=== PATIENT | male | born 1975 | race Caucasian/White ===

== ENCOUNTER 2018-04-27 04:59 | Emergency (ER) | payer BC, OTHER ==
[2018-04-27] MEDS ORDERED: HYDROmorphone 0.5 MG/0.5 ML SYRINGE IVPUSH STA ×2 (05:40→07:34)
[2018-04-27] MEDS ORDERED: Tamsulosin 0.4 MG Cap.ER PO ONE (05:40)
[2018-04-27] MEDS ORDERED: Ondansetron 4 MG/2 ML SDV IVPUSH ONE (05:41)
[2018-04-27] MEDS ORDERED: Ketorolac 30 MG/ML SDV IVPUSH STA (05:41)
[2018-04-27] MEDS ORDERED: Sodium Chloride 0.9% 1,000 ML IV SCH (05:45)
--- NOTE | 2018-04-27 05:47 | EDM.PDOC ---
ED HPI GENERAL MEDICAL PROBLEM - General Chief Complaint: Back Pain or Injury Stated Complaint: SEVERE PAIN IN BACK LEFT SIDE Time Seen by Provider: 04/27/18 05:17 Source of Information: Reports: Patient History Limitations: Reports: No Limitations - History of Present Illness INITIAL COMMENTS - FREE TEXT/NARRATIVE: The patient states that he developed left flank pain around 20:00 last night, as he was getting into bed. He became diaphoretic. He was unable to find a comfortable position. The pain radiated to his upper left abdomen around 20:30. He developed nausea and emesis around 20:45 to 21:00, which provided some relief , and the patient was able to get to sleep, but he was woken around 02:00 with symptoms worse than before, and he has been vomiting ever since. No recent fever. No urinary symptoms. No constipation or diarrhea. No prior similar symptoms. The patient states that he took 2 tablets of ibuprofen around 03:30, without any relief. The patient drove himself here. The patient's PCP is Liza Villagomez. Left Back Pain Score (Numeric/FACES): 8 - Related Data Allergies Allergy/AdvReac Type Severity Reaction Status Date / Time Penicillins Allergy Rash Verified 04/27/18 05:14 Home Meds: Home Meds Acetaminophen/HYDROcodone [[place] 325-5 MG] 1 - 2 tab PO Q6H PRN #20 tablet 04/27 [Rx] Ondansetron [Zofran ODT] 1 tab PO Q8H PRN #10 tab.dis 04/27/18 [Rx] Sertraline [Zoloft] 50 mg PO DAILY 04/27/18 [History] Tamsulosin HCl [Flomax] 1 cap PO QAM PRN #5 cap.er.24h 04/27/18 [Rx] Zolpidem Tartrate 10 mg PO BEDTIME PRN 04/27/18 [History] Past Medical History Psychiatric History: Reports: Anxiety, Other (See Below) (Insomnia) - Past Surgical History Head Surgeries/Procedures: Reports: Other (See Below) (Cosmetic cranial surgery as an infant) HEENT Surgical History: Reports: Oral Surgery ([place] teeth extraction) Respiratory Surgical History: Reports: Other (See Below) (Bronchoscopy to retrieve a foreign body at 6 years old) Social & Family History - Tobacco Use Smoking Status *Q: Never Smoker - Caffeine Use Caffeine Use: Reports: Coffee, Soda - Alcohol Use Alcohol Use History: No - Recreational Drug Use Recreational Drug Use: No - Living Situation & Occupation Living situation: Reports: , with Spouse, with Family (3 kids) 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 ED EXAM, RENAL/ - Physical Exam Exam: See Below Exam Limited By: No Limitations General Appearance: Alert, WD/WN, Mild Distress (Appears uncomfortable) Eye Exam: Bilateral Eye: Normal Inspection Ears: Normal External Exam, Hearing Grossly Normal Nose: Normal Inspection, No Blood Throat/Mouth: Normal Inspection, Normal Lips, Normal Voice, No Airway Compromise Head: Atraumatic, Normocephalic Neck: Normal Inspection, Full Range of Motion Respiratory/Chest: No Respiratory Distress, Lungs Clear, Normal Breath Sounds, No Accessory Muscle Use Cardiovascular: Normal Peripheral Pulses, Regular Rate, Rhythm, No Edema, No Gallop, No JVD, No Murmur, No Rub GI/Abdominal: Normal Bowel Sounds, Soft, No Organomegaly, No Distention, No Abnormal Bruit, No Mass, Tender (Left upper quadrant only. Nontender elsewhere.) (Male) Exam: Deferred Rectal (Males) Exam: Deferred Back Exam: Normal Inspection, Full Range of Motion. No: CVA Tenderness (L), CVA Tenderness (R) Extremities: Normal Inspection, Normal Range of Motion, No Pedal Edema, Normal Capillary Refill Neurological: Alert, Oriented, Normal Cognition, No Motor/Sensory Deficits Psychiatric: Normal Affect Skin Exam: Warm, Dry, Intact, Normal Color, No Rash Course - Vital Signs Last Recorded V/S: Last Vital Signs Temp 36.2 C 04/27/18 05:11 Pulse 64 04/27/18 05:11 Resp 18 04/27/18 05:11 BP 149/98 H 04/27/18 05:11 Pulse Ox 99 04/27/18 05:11 - Orders/Labs/Meds Orders: Active Orders 24 hr Category Date Time Status Strain Urine [RC] ASDIRECTED Care 04/27/18 05:42 Active UA W/MICROSCOPIC [URIN] Stat Lab 04/27/18 05:20 Ordered Sodium Chloride 0.9% [Normal Saline] 1,000 ml Med 04/27/18 05:45 Active IV ASDIRECTED Medication Orders Sodium Chloride (Normal Saline) 1,000 mls @ 150 mls/hr IV ASDIRECTED KENIA Last Admin: 04/27/18 05:50 Dose: 150 mls/hr Meds: Medications Generic Name Dose Route Start Last Admin Trade Name Antonia PRN Reason Stop Dose Admin Sodium Chloride 1,000 mls @ 150 mls/hr 04/27/18 05:45 04/27/18 05:50 Normal Saline IV 150 mls/hr ASDIRECTED KENIA Administration Discontinued Medications Generic Name Dose Route Start Last Admin Trade Name Cosmoq PRN Reason Stop Dose Admin Hydromorphone HCl 1 mg 04/27/18 05:40 04/27/18 05:51 Dilaudid IVPUSH 04/27/18 05:41 1 mg ONETIME STA Administration Hydromorphone HCl 1 mg 04/27/18 07:34 04/27/18 08:22 Dilaudid IVPUSH 04/27/18 07:35 1 mg ONETIME STA Administration Ketorolac Tromethamine 30 mg 04/27/18 05:41 04/27/18 05:51 Toradol IVPUSH 04/27/18 05:42 30 mg ONETIME STA Administration Ondansetron HCl 4 mg 04/27/18 05:41 04/27/18 05:51 Zofran IVPUSH 04/27/18 05:42 4 mg ONETIME ONE Administration Tamsulosin HCl 0.4 mg 04/27/18 05:40 04/27/18 05:52 Flomax PO 04/27/18 05:41 0.4 mg ONETIME ONE Administration - Re-Assessments/Exams Free Text/Narrative Re-Assessment/Exam: 04/27/18 05:48 The patient's history is consistent with that of a ureterolith, although his physical exam is not. Nevertheless, I have ordered a CT of the abdomen and pelvis without IV contrast to look for a ureterolith, as well as a urinalysis to make sure that he does not have a urinary tract infection. The patient states that he drove himself here, but that he can get a ride home, therefore I have ordered pain medication. 04/27/18 06:48 CT of the abdomen and pelvis without contrast is read by [facility] as "Mild left perinephric stranding and hydronephrosis secondary to a 2.5 mm calculus located in the left ureter at the level of L3. Remainder of findings as described above." 04/27/18 06:49 CT of the abdomen and pelvis without contrast is read by Dr. Hurley as: 1. 3.4 mm obstructing stone within the proximal left ureter slightly past the UPJ. This finding causes proximal hydronephrosis. 2. Small subpleural nodule within the left lung base. If patient is a smoker, recommend repeat CT (without contrast) in 12 months. If patient is not a smoker this can be ignored. 3. Other incidental findings. 04/27/18 07:19 Test results discussed with the patient. At either 2.5 or 3.4 mm, the patient will likely pass this stone on his own, therefore can be discharged home. Unfortunately, the patient has not yet provided a urine sample, and I don't want to send him home with a UTI. He believes that he can provide a urine sample soon. 04/27/18 08:51 Significant delay. The patient has not yet provided a urine sample. 04/27/18 09:42 The patient has not been able to provide a urine sample, despite receiving IV fluid and oral fluids. I will discharge him now with prescriptions for [place], Zofran, and Flomax. The patient can follow-up with his PCP to check a urinalysis. Departure - Departure Time of Disposition: 09:46 Disposition: Home, Self-Care 01 Condition: Fair Clinical Impression: Ureterolithiasis - Discharge Information Prescriptions: Acetaminophen/HYDROcodone [[place] 325-5 MG] 1 - 2 tab PO Q6H PRN #20 tablet PRN Reason: Pain (Severe 7-10) Ondansetron [Zofran ODT] 1 tab PO Q8H PRN #10 tab.dis PRN Reason: Nausea/Vomiting Tamsulosin HCl [Flomax] 1 cap PO QAM PRN #5 cap.er.24h PRN Reason: Pain Referrals: Liza Villagomez MOVE COORDINATOR [Primary Care Provider] - Jensen Canchola MD [Ordering Only Provider] - Forms: ED Department Discharge Additional Instructions: You were seen in the emergency room for left flank pain that radiated into your upper left abdomen, nausea, vomiting, and sweatiness. Workup in the ER included a CT scan of her abdomen and pelvis, which confirmed that you have a midsized stone in your left ureter. A stone the size and location of the stone, you will most likely pass it on your own. Take [id number] ibuprofen, 2-3 tablets (400-600 mg) every 8 hours, with food, as needed for pain. Take 1 to 2 tablets of the narcotic pain reliever [place] up to every 6 hours, as needed for pain not relieved by ibuprofen. If you take [place], do not drive or operate heavy machinery for 10 hours afterwards. Cr[place] will likely cause constipation, so consider taking a stool softener. Dissolve one tablet of the anti-nausea medicine Zofran on your tongue up to every 8 hours, as needed for nausea/vomiting. Take one capsule of the anti-spasm medicine Flomax every morning, starting tomorrow morning, 04/28/2018, as needed for pain. Stay adequately hydrated. Strain all of your urine. If you capture the stone, take it to your doctor for analysis. If your pain fails to improve within about a week, please follow-up with the urologist Dr. Canchola, in [place]. Because you were unable to provide a urine sample in the ER, please follow-up with your PCP, Liza Villagomez, to check your urine, to make sure that you do not have a urinary tract infection. If any other problems, please do not hesitate to return to the ER. - My Orders Last 24 Hours: My Active Orders 04/27/18 05:20 UA W/MICROSCOPIC [URIN] Stat 04/27/18 05:42 Strain Urine [RC] ASDIRECTED 04/27/18 05:45 Sodium Chloride 0.9% [Normal Saline] 1,000 ml IV ASDIRECTED - Assessment/Plan Last 24 Hours: My Active Orders 04/27/18 05:20 UA W/MICROSCOPIC [URIN] Stat 04/27/18 05:42 Strain Urine [RC] ASDIRECTED 04/27/18 05:45 Sodium Chloride 0.9% [Normal Saline] 1,000 ml IV ASDIRECTED
--- NOTE | 2018-04-27 06:38 | CT ---
CT abdomen and pelvis Technique: Multiple axial sections were obtained from above the dome of the diaphragm inferiorly through the pubic symphysis. Intravenous and oral contrast not utilized. Study has been performed as a ureteral stone protocol. Comparison: No prior abdominal imaging. Findings: Mild left-sided hydronephrosis is seen. This is due to a small obstructing stone within the proximal left ureter located slightly past the UPJ and measuring about 3.4 mm in size. No other abnormal calcifications are seen along the course of the ureters. No abnormal calcifications are seen within the kidneys. Small subpleural nodule is noted within the left lung base measuring about 3.5 mm. Liver shows no focal abnormality. Spleen appears within normal limits. Adrenal glands show no nodule. Pancreas is within normal limits. Gallbladder contains no calcified gallstones. Aorta shows no aneurysmal dilatation. No retroperitoneal adenopathy or mesenteric abnormalities are seen. Appendix is seen which is normal in size. No pelvic mass or adenopathy is seen. No inflammatory change or free fluid is seen within the abdomen or pelvis. Bone window settings were reviewed which shows disc space narrowing at L5-S1. Impression: 1. 3.4 mm obstructing stone within the proximal left ureter slightly past the UPJ. This finding causes proximal hydronephrosis. 2. Small subpleural nodule within the left lung base. If patient is a smoker, recommend repeat chest CT (without contrast) in 12 months. If patient is not a smoker this can be ignored. 3. Other incidental findings. Diagnostic code #3
== END 2018-04-27 11:05 | disposition home or self-care (01) ==
LOC: JD.ED 04:59
DX: N13.2 Hydronephrosis with renal and ureteral calculous obstruction (principal); Z88.0 Allergy status to penicillin; Z79.899 Other long term (current) drug therapy
CPT/HCPCS: 74176; 81001; 96361; 96374; 96375; 96376; 99284; A9270; J1170; J1885; J2405; J7040

== ENCOUNTER 2021-04-22 07:04 | Observation (INO) | payer OTHER ==
--- NOTE | 2021-04-22 06:26 | PCM.PREANE ---
Preanesthetic Assessment - Procedure Proposed Procedure: Colonoscopy - Anesthesia/Transfusion/Family Hx Anesthesia History: Prior Anesthesia Without Reaction Family History of Anesthesia Reaction: No Transfusion History: No Prior Transfusion(s) Intubation History: Unknown - Review of Systems General: No Symptoms Pulmonary: No Symptoms Cardiovascular: No Symptoms Gastrointestinal: No Symptoms Neurological: No Symptoms Other: Reports: None - Physical Assessment NPO Status Date: 04/20/21 NPO Status Time: 22:00 Vital Signs: BP 159/94 HR 72 RR 16 Sat 97 97.7 Height: 1.85 m Weight: 100.7 kg ASA Class: 2 Mental Status: Alert & Oriented x3 Airway Class: Mallampati = 2 Dentition: Reports: [place](s), [place] Thyro-Mental Finger Breadths: 3 Mouth Opening Finger Breadths: 3 ROM/Head Extension: Full Lungs: Clear to Auscultation, Normal Respiratory Effort Cardiovascular: Regular Rate, Regular Rhythm - Allergies Allergies/Adverse Reactions: Allergies Allergy/AdvReac Type Severity Reaction Status Date / Time Penicillins Allergy Rash Verified 04/21/21 16:35 - Blood Blood Available: No Product(s) Available: None - Acknowledgements Anesthesia Type Planned: MAC Pt an Appropriate Candidate for the Planned Anesthesia: Yes Alternatives and Risks of Anesthesia Discussed w Pt/Guardian: Yes Pt/Guardian Understands and Agrees with Anesthesia Plan: Yes PreAnesthesia Questionnaire HEENT History: Reports: Impaired Vision, Other (See Below) Other HEENT History: post nasal drip, wears contacts Cardiovascular History: Reports: Hypertension Respiratory History: Reports: Other (See Below) Other Respiratory History: pharyngitis, undiagnosed sleep apnea, history of bronchoscopy at 6 years old Gastrointestinal History: Reports: None Genitourinary History: Reports: None Other Genitourinary History: History of kidney stone 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 Musculoskeletal History: Reports: Other (See Below) Other Musculoskeletal History: elbow pain-resolved Neurological History: Reports: Other (See Below) Other Neuro History: lumbar back pain with radiculopathy, history of craniotomy Psychiatric History: Reports: Anxiety, Depression, Other (See Below) Other Psychiatric History: insomnia Endocrine/Metabolic History: Reports: None Hematologic History: Reports: None Immunologic History: Reports: None Oncologic (Cancer) History: Reports: None Dermatologic History: Reports: Other (See Below) Other Dermatologic History: axilla abcess, cystic acne vulgaris, soft tissue mass - Past Surgical History Head Surgeries/Procedures: Reports: None, Other (See Below) HEENT Surgical History: Reports: Oral Surgery Cardiovascular Surgical History: Reports: None Respiratory Surgical History: Reports: Other (See Below) Other Respiratory Surgeries/Procedures: bronchoscopy at 6 years old due to inhaling screw GI Surgical History: Reports: None Female Surgical History: Reports: None Male Surgical History: Reports: None Endocrine Surgical History: Reports: None Other Neurological Surgeries/Procedures: 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 Oncologic Surgical History: Reports: None - SUBSTANCE USE Tobacco Use Status *Q: Former Tobacco User Tobacco Use Within Last Twelve Months: Snuff/Dip Second Hand Smoke Exposure: No Days Per Week of Alcohol Use: 0 Number of Drinks Per Day: 0 Total Drinks Per Week: 0 Recreational Drug Use History: No Other Recreational Drug Type: Had chewing tobacco at 0400 04/22/21 - will delay patient - HOME MEDS Home Medications: Home Meds Zolpidem Tartrate 10 mg PO BEDTIME PRN 04/27/18 [History] Escitalopram Oxalate [Lexapro] 20 mg PO DAILY 04/21/21 [History] Ibuprofen 600 mg PO Q12H PRN 04/21/21 [History] - CURRENT (IN HOUSE) MEDS Current Meds: Current Medications Lactated Ringer's (Ringers, Lactated) 1,000 mls @ 125 mls/hr IV ASDIRECTED KENIA Stop: 04/22/21 23:00 Lidocaine/Sodium Bicarbonate (Lidocaine 1%/Sod Bicarbonate In Ns 8.4% 1 Ml Syringe) 0.25 ml IDERM ONETIME PRN PRN Reason: Prior to IV Start Stop: 04/22/21 18:00 Sodium Chloride (Sodium Chloride 0.9% 10 Ml Syringe) 10 ml FLUSH ASDIRECTED PRN PRN Reason: Keep Vein Open Stop: 04/22/21 18:00
[~2021-04-22 07:04] MED LIST: Lidocaine 1% 6 ML ONE; Lidocaine 1%/Sod Bicarbonate in NS 8.4% 1 ML Syringe IDERM PRN; Midazolam 1 MG/ML 2 ML SDV ONE; Propofol 200 MG/20 ML SDV ONE; Sodium Chloride 0.9% 10 ML Syringe FLUSH PRN
[2021-04-22] MEDS: Lactated Ringers 1,000 ML IV SCH ×2 (07:15→16:11)
[2021-04-22] MEDS ORDERED: Propofol 200 MG/20 ML SDV ONE ×3 (09:50→10:17)
--- NOTE | 2021-04-22 10:53 | PCM.PRNOTE ---
- Free Text/Narrative Note: Date: 04/22/2021 Procedure: screening colonoscopy, banding of internal hemorrhoids History: no prior screening. Patient's father was diagnosed with colon cancer in his 60's. Patient describes prolapsing internal hemorrhoid that he has to manually reduce. Endoscopist: Roshan Damian Findings: two small polyps identified, one close the IC valve and one in sigmoid colon. Internal hemorrhoids, not particularly impressive. No prolapsing tissue on exam. High sphincter tone. Detailed Report: Patient was taken to the endoscopy suite and placed in left lateral decubitus position. Timeout was performed and monitored anesthesia care was initiated. Visual inspection of the anus revealed no abnormality. Digital rectal exam was unremarkable, except for noted high sphincter tone. I was unable to get any hemorrhoidal tissue to prolapse with digital exam. The colonoscope was inserted and advanced to the cecum with ease. The ileocecal valve and appendiceal orifice were visualized. The prep was excellent. Just distal to the ileocecal valve was a 1 cm broad-based raised polyp which was removed entirely using hot snare polypectomy technique. This polyp was retrieved successfully. The scope was slowly withdrawn and mucosal surfaces inspected. A single subcentimeter sessile polyp was identified in the mid sigmoid colon which was removed using jumbo forceps. No other lesions were identified. The scope was withdrawn through the anal rectal sphincter complex and internal hemorrhoidal tissue was appreciated. Air was suctioned from the rectum and the scope was withdrawn. A clear anoscope was inserted and hemorrhoidal columns inspected. There was some prominent hemorrhoidal tissue at the left lateral column and right anterior column. 2 bands were placed on each of these columns, taking care to make sure the placement was above the dentate line. The patient tolerated the procedure well.
--- NOTE | 2021-04-22 11:39 | CR ---
Chest: Portable view of the chest was obtained. Comparison: No previous study. Slight increased density is seen within the left base. Right lung is clear. Heart size and mediastinum are normal. Bony structures are grossly intact. Impression: 1. Increased density within left lung base. If patient has history of aspiration, this is certainly compatible with that etiology. 2. Other portions of the portable chest x-ray are unremarkable. Diagnostic code #3
[2021-04-22] MEDS ORDERED: Albuterol 0.083% 2.5 MG/3 ML Neb Soln NEB ONE (12:00)
--- NOTE | 2021-04-22 12:12 | PCM.SN.2 ---
- Free Text/Narrative Note: Patient claimed to have had chewing tobacco at 0400 today. Procedure delayed 6 hours from 0400 of chewing tobacco. When scope was being withdrawn, patient started coughing. Oral pharynx suctioned with scant/small amount of brown colored secretions. Oxygen saturations decreased to 88%. Mask oxygen applied with great response, oxygen saturations improved to 97-99%. Shoeshiner questioned potential of aspiration. Patient's lungs sounded wheezy to bilateral lungs. Neb ordered and RT notified. Chest x-ray ordered and completed. Discussed situation with Dr. Damian and chest x-ray also reviewed with Dr. Damian. Patient is currently on 4 liters oxygen and patient stating that he feels some relief following the albuterol treatment. Dr. Damian discussed with nursing staff to encourage use of incentive spirometer and to wean oxygen as tolerated to keep oxygen saturations above 92%. Will continue to monitor patient closely. Prudence Victor DIRECTOR OF SECURITIES AND REAL ESTATE
[2021-04-22] MEDS ORDERED: Ibuprofen 600 MG Tab PO ONE (13:30)
--- NOTE | 2021-04-22 14:05 | PCM.HP.2 ---
H&P History of Present Illness - General Date of Service: 04/22/21 Admit Problem/Dx: colon polyps, internal hemorrhoids Source of Information: Patient History Limitations: Reports: No Limitations - History of Present Illness Initial Comments - Free Text/Narative: Mr. Stuart is a 45 yo man who underwent screening colonoscopy and banding of internal hemorrhoids today. There was concern in the recovery unit for an aspiration event, as the patient was coughing and had increased oxygen requirement. Chest x-ray showed evidence of possible LLL aspiration. The patient developed a fever within a few hours of the procedure, although he was able to wean off supplemental oxygen with pulmonary toilet. - Related Data Allergies/Adverse Reactions: Allergies Allergy/AdvReac Type Severity Reaction Status Date / Time Penicillins Allergy Rash Verified 04/22/21 09:14 Home Medications: Home Meds Zolpidem Tartrate 10 mg PO BEDTIME PRN 04/27/18 [History] Escitalopram Oxalate [Lexapro] 20 mg PO DAILY 04/21/21 [History] Ibuprofen 600 mg PO Q12H PRN 04/21/21 [History] Past Medical History HEENT History: Reports: Impaired Vision, Other (See Below) Other HEENT History: post nasal drip, wears contacts Cardiovascular History: Reports: Hypertension Respiratory History: Reports: Other (See Below) Other Respiratory History: pharyngitis, undiagnosed sleep apnea, history of bronchoscopy at 6 years old Gastrointestinal History: Reports: None Genitourinary History: Reports: None Other Genitourinary History: History of kidney stone 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 Musculoskeletal History: Reports: Other (See Below) Other Musculoskeletal History: elbow pain-resolved Neurological History: Reports: Other (See Below) Other Neuro History: lumbar back pain with radiculopathy, history of craniotomy Psychiatric History: Reports: Anxiety, Depression, Other (See Below) Other Psychiatric History: insomnia Endocrine/Metabolic History: Reports: None Hematologic History: Reports: None Immunologic History: Reports: None Oncologic (Cancer) History: Reports: None Dermatologic History: Reports: Other (See Below) Other Dermatologic History: axilla abcess, cystic acne vulgaris, soft tissue mass - Past Surgical History Head Surgeries/Procedures: Reports: None, Other (See Below) HEENT Surgical History: Reports: Oral Surgery Cardiovascular Surgical History: Reports: None Respiratory Surgical History: Reports: Other (See Below) Other Respiratory Surgeries/Procedures: bronchoscopy at 6 years old due to inhaling screw GI Surgical History: Reports: None Female Surgical History: Reports: None Male Surgical History: Reports: None Endocrine Surgical History: Reports: None Other Neurological Surgeries/Procedures: 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 Oncologic Surgical History: Reports: None Social & Family History - Tobacco Use Tobacco Use Status *Q: Former Tobacco User Years of Tobacco use: 20 Packs/Tins Daily: 0.7 Second Hand Smoke Exposure: No - Caffeine Use Caffeine Use: Reports: Coffee, Soda - Alcohol Use Days Per Week of Alcohol Use: 0 Number of Drinks Per Day: 0 Total Drinks Per Week: 0 - Recreational Drug Use Recreational Drug Use: No Drug Use in Last 12 Months: No Other Recreational Drug Type: Had chewing tobacco at 0400 04/22/21 - will delay patient - Living Situation & Occupation Living situation: Reports: , with Spouse, with Family (3 kids) 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[employer]) H&P Review of Systems - Review of Systems: Review Of Systems: See Below General: Reports: Fever, Chills, Malaise HEENT: Reports: No Symptoms Pulmonary: Reports: Cough Cardiovascular: Reports: No Symptoms Gastrointestinal: Reports: Other (rectal pressure, discomfort) Genitourinary: Reports: No Symptoms Musculoskeletal: Reports: No Symptoms Skin: Reports: No Symptoms Psychiatric: Reports: No Symptoms Neurological: Reports: No Symptoms Hematologic/Lymphatic: Reports: No Symptoms Immunologic: Reports: No Symptoms Exam - Exam Exam: See Below - Vital Signs Vital Signs: Last Vital Signs Temp 37.4 C 04/22/21 11:35 Pulse 89 04/22/21 13:30 Resp 18 04/22/21 11:35 BP 111/66 04/22/21 13:30 Pulse Ox 96 04/22/21 13:30 Weight: 100.7 kg - Exam General: Alert, Oriented, Cooperative HEENT: Conjunctiva Clear Neck: Supple Lungs: Rhonchi Cardiovascular: Regular Rate, Regular Rhythm GI/Abdominal Exam: Soft, Non-Tender Rectal (Males) Exam: Other (tight sphincter, no pain or gross blood, bands palpable) Extremities: Normal Inspection Skin: Warm, Dry Neuro Extensive - Mental Status: Alert, Oriented x3 Sepsis Event Note - Focused Exam Vital Signs: Vital Signs Temp Pulse Resp BP Pulse Ox Pulse Ox 06/10/21 13:30 89 111/66 96 04/22/21 13:05 96 04/22/21 13:00 86 145/83 H 97 04/22/21 12:47 96 04/22/21 12:30 83 111/74 95 04/22/21 12:14 96 04/22/21 12:00 84 108/70 97 04/22/21 11:58 96 04/22/21 11:35 37.4 C 89 18 116/74 96 04/22/21 11:25 93 L 04/22/21 11:17 96 04/22/21 10:45 36.3 C 83 16 116/68 92 L 04/22/21 07:15 36.5 C 72 16 159/94 H 97 Problem List Initiated/Reviewed/Updated: Yes Orders Last 24hrs: Active Orders 24 hr Category Date Time Status Patient Status [ADT] Routine ADT 04/22/21 13:55 Ordered Activity as Tolerated [RC] .Routine Care 04/22/21 13:55 Ordered Antiembolic Devices [RC] PER UNIT ROUTINE Care 04/22/21 13:56 Ordered Incentive Spirometry [RT Incentive Spirometry] [RC] Care 04/22/21 11:49 Active ASDIRECTED Oxygen Therapy [RC] PRN Care 04/22/21 13:55 Ordered Peripheral IV Care [RC] . DIRECTED Care 04/22/21 00:01 Active RT Aerosol Therapy [RC] ASDIRECTED Care 04/22/21 11:07 Active RT Incentive Spirometry [RC] Q1HWA Care 04/22/21 13:55 Ordered Verify Patient Consent Obtain [RC] ASDIRECTED Care 04/22/21 00:01 Active Vital Signs [RC] Q4H Care 04/22/21 13:55 Ordered Regular Diet [DIET] Diet 04/22/21 Breakfast Ordered Chest 2V [CR] Routine Exams 04/23/21 07:00 Ordered BASIC METABOLIC PANEL,BMP [CHEM] AM Lab 04/23/21 05:11 Ordered CBC WITH AUTO DIFF [HEME] AM Lab 04/23/21 05:11 Ordered Acetaminophen [TylenoL] Med 04/22/21 14:00 Ordered 975 mg PO Q8H Docusate Sodium [Colace] Med 04/23/21 09:00 Ordered 100 mg PO DAILY Escitalopram Oxalate Med 04/23/21 09:00 Ordered 20 mg PO DAILY Lactated Ringers [Ringers, Lactated] 1,000 ml Med 04/22/21 00:01 Active IV ASDIRECTED Lidocaine 1%/Sod Bicarbonate [Buffered Lidocaine 1% in Med 04/22/21 00:01 Active NS 8.4%] 0.25 ml IDERM ONETIME PRN Sodium Chloride 0.9% [Saline Flush] Med 04/22/21 00:01 Active 10 ml FLUSH ASDIRECTED PRN oxyCODONE Med 04/22/21 13:55 Ordered 5 mg PO Q4H PRN polyethylene glycoL 3350 [MiraLAX] Med 04/23/21 09:00 Ordered 17 gm PO DAILY Medication Administration Instruction [OM.PC] Routine Oth 04/22/21 00:01 Ordered Peripheral IV Insertion Adult [OM.PC] Routine Oth 04/22/21 00:01 Ordered Sequential Compression Device [OM.PC] Routine Oth 04/22/21 13:55 Ordered Resuscitation Status Routine Resus Stat 04/22/21 13:55 Ordered Medication Orders Acetaminophen (Acetaminophen 325 Mg Tab) 975 mg PO Q8H KENIA Docusate Sodium (Docusate Sodium 100 Mg Cap) 100 mg PO DAILY KENIA Lactated Ringer's (Ringers, Lactated) 1,000 mls @ 125 mls/hr IV ASDIRECTED KENIA Stop: 04/22/21 23:00 Last Admin: 04/22/21 07:15 Dose: 125 mls/hr Documented by: JEAN-CLAUDE Lidocaine/Sodium Bicarbonate (Lidocaine 1%/Sod Bicarbonate In Ns 8.4% 1 Ml Syringe) 0.25 ml IDERM ONETIME PRN PRN Reason: Prior to IV Start Stop: 04/22/21 18:00 Last Admin: 04/22/21 07:15 Dose: 0.25 ml Documented by: PRIASHLEY Non-Formulary Medication (Escitalopram Oxalate) 20 mg PO DAILY KENIA Oxycodone HCl (Oxycodone 5 Mg Tab) 5 mg PO Q4H PRN PRN Reason: Pain (moderate 4-6) Polyethylene Glycol (Polyethylene Glycol 3350 Powder 17 Gm Packet) 17 gm PO DAILY KENIA Sodium Chloride (Sodium Chloride 0.9% 10 Ml Syringe) 10 ml FLUSH ASDIRECTED PRN PRN Reason: Keep Vein Open Stop: 04/22/21 18:00 Assessment/Plan Comment:: Clinically significant aspiration during monitored anesthesia care for colonoscopy. Plan to admit for observation, continued pulmonary toilet and repeat CXR with labs in AM. - Mortality Measure Prognosis:: Good
[2021-04-22] MEDS: Acetaminophen 325 MG Tab PO SCH ×2 (14:47→21:26)
[2021-04-22] MEDS: oxyCODONE 5 MG Tab PO PRN ×2 (19:35→23:53)
[2021-04-23] MEDS: Acetaminophen 325 MG Tab PO SCH (05:46)
--- NOTE | 2021-04-23 07:47 | PCM48HPAN ---
Post Anesthesia Note - EVALUATION WITHIN 48HRS OF ANESTHETIC Vital Signs in Normal Range: Yes Patient Participated in Evaluation: Yes Respiratory Function Stable: Yes Airway Patent: Yes Cardiovascular Function Stable: Yes Hydration Status Stable: Yes Pain Control Satisfactory: Yes Nausea and Vomiting Control Satisfactory: Yes Mental Status Recovered: Yes Vital Signs: Last Vital Signs Temp 99.0 F 04/23/21 05:42 Pulse 81 04/23/21 05:42 Resp 20 04/23/21 05:42 BP 105/60 04/23/21 05:42 Pulse Ox 92 L 04/23/21 05:42 - COMMENTS/OBSERVATIONS Free Text/Narrative:: Patient stated that he is feeling better this morning. He also stated that he is able to take larger breaths than yesterday but still has a cough. Patient remained on RA throughout the night while maintaining his oxygen saturations above 92%.
--- NOTE | 2021-04-23 08:18 | CR ---
Chest: PA and lateral views of the chest were obtained. Comparison: Prior chest x-ray of 04/22/21. Patchy perihilar density is seen within the left chest as well as increased density within the left lung base. Mild density within the right lung base is seen. No significant change is seen from previous exam. Heart size and mediastinum are normal. Bony structures appear within normal limits for the patient's age. Impression: 1. Increased density within both sides of the chest, worse on the left side. No definite change from previous chest x-ray is seen. 2. Nothing acute is otherwise appreciated. Diagnostic code #3
[2021-04-23] MEDS ORDERED: Polyethylene Glycol 3350 Powder 17 GM Packet PO SCH (09:00)
[2021-04-23] MEDS ORDERED: Citalopram 20 MG Tab PO SCH (09:00)
[2021-04-23] MEDS ORDERED: LEXAPRO 20 MG PO SCH (09:00)
[2021-04-23] MEDS ORDERED: Docusate Sodium 100 MG Cap PO SCH (09:00)
--- NOTE | 2021-05-10 07:57 | PCM.DCSUM1 ---
Discharge Summary - Hospital Course Free Text/Narrative:: admitted for observation after screening colonoscopy due to concern for aspiration pneumonitis following the procedure. He improved within 24 hours with stable CXR findings and was deemed fit for discharge the day after the procedure. Diagnosis: Stroke: No - Discharge Data Discharge Date: 04/23/21 Discharge Disposition: Home, Self-Care 01 Condition: Good - Referral to Home Health Primary Care Physician: Radha Weinberg PA-C - Patient Summary/Data Operative Procedure(s) Performed: colonoscopy Complications: aspiration - Patient Instructions Diet: Usual Diet as Tolerated - Discharge Plan *PRESCRIPTION DRUG MONITORING PROGRAM REVIEWED*: Not Applicable *COPY OF PRESCRIPTION DRUG MONITORING REPORT IN PATIENT ALETA: Not Applicable Home Medications: Home Meds Zolpidem Tartrate 10 mg PO BEDTIME PRN 04/27/18 [History] Escitalopram Oxalate [Lexapro] 20 mg PO BEDTIME 04/21/21 [History] Ibuprofen 600 mg PO Q12H PRN 04/21/21 [History] Oxygen Therapy Mode: Room Air Patient Handouts: Smokeless Tobacco Information, Adult, Aspiration Pneumonia Referrals: Radha Weinberg PA-C [Primary Care Provider] - 05/04/21 10:00 am (check in 9:40) - Discharge Summary/Plan Comment DC Time >30 min.: No - Patient Data Vitals - Most Recent: Last Vital Signs Temp 37.2 C 04/23/21 05:42 Pulse 81 04/23/21 05:42 Resp 20 04/23/21 05:42 BP 105/60 04/23/21 05:42 Pulse Ox 92 L 04/23/21 05:42 Weight - Most Recent: 101.831 kg Med Orders - Current: Current Medications Discontinued Medications Acetaminophen (Acetaminophen 325 Mg Tab) 975 mg PO Q8H KENIA Last Admin: 04/23/21 05:46 Dose: 975 mg Documented by: Albuterol (Albuterol 0.083% 2.5 Mg/3 Ml Neb Soln) 2.5 mg NEB ONETIME ONE Stop: 04/22/21 12:01 Last Admin: 04/22/21 11:23 Dose: 2.5 mg Documented by: Citalopram Hydrobromide (Citalopram 20 Mg Tab) 40 mg PO DAILY KENIA Docusate Sodium (Docusate Sodium 100 Mg Cap) 100 mg PO DAILY [facility] Last Admin: 04/23/21 08:12 Dose: 100 mg Documented by: Lactated Ringer's (Ringers, Lactated) 1,000 mls @ 125 mls/hr IV ASDIRECTED [facility] Stop: 04/22/21 23:00 Last Admin: 04/22/21 16:11 Dose: 125 mls/hr Documented by: Lidocaine HCl (Xylocaine-Mpf 1%) Confirm Administered Dose 6 mls @ as directed .ROUTE .STK-MED ONE Stop: 04/22/21 06:53 Ibuprofen (Ibuprofen 600 Mg Tab) 600 mg PO ONETIME ONE Stop: 04/22/21 13:31 Last Admin: 04/22/21 13:21 Dose: 600 mg Documented by: Lidocaine/Sodium Bicarbonate (Lidocaine 1%/Sod Bicarbonate In Ns 8.4% 1 Ml Syringe) 0.25 ml IDERM ONETIME PRN PRN Reason: Prior to IV Start Stop: 04/22/21 18:00 Last Admin: 04/22/21 07:15 Dose: 0.25 ml Documented by: Midazolam HCl (Midazolam 1 Mg/Ml 2 Ml Sdv) Confirm Administered Dose 2 mg .ROUTE .STK-MED ONE Stop: 04/22/21 06:52 Lexapro 20mg (Pt's (Own Med)) 40 each PO DAILY [facility] Oxycodone HCl (Oxycodone 5 Mg Tab) 5 mg PO Q4H PRN PRN Reason: Pain (moderate 4-6) Last Admin: 04/22/21 23:53 Dose: 5 mg Documented by: Polyethylene Glycol (Polyethylene Glycol 3350 Powder 17 Gm Packet) 17 gm PO DAILY [facility] Last Admin: 04/23/21 08:12 Dose: 17 gm Documented by: Propofol (Propofol 200 Mg/20 Ml Sdv) Confirm Administered Dose 0 mg .ROUTE .STK- MED ONE Stop: 04/22/21 06:52 Propofol (Propofol 200 Mg/20 Ml Sdv) Confirm Administered Dose 200 mg .ROUTE .STK-MED ONE Stop: 04/22/21 09:51 Propofol (Propofol 200 Mg/20 Ml Sdv) Confirm Administered Dose 200 mg .ROUTE .STK-MED ONE Stop: 04/22/21 10:13 Propofol (Propofol 200 Mg/20 Ml Sdv) Confirm Administered Dose 200 mg .ROUTE .STK-MED ONE Stop: 04/22/21 10:18 Sodium Chloride (Sodium Chloride 0.9% 10 Ml Syringe) 10 ml FLUSH ASDIRECTED PRN PRN Reason: Keep Vein Open Stop: 04/22/21 18:00
== END 2021-04-23 09:55 | disposition home or self-care (01) ==
LOC: JD.SDS 07:04 → JD.MS 13:55
PROVIDERS: ADMIT Surgery; ATTEND Surgery
DX: Z12.11 Encounter for screening for malignant neoplasm of colon (principal); D12.2 Benign neoplasm of ascending colon; K64.8 Other hemorrhoids; K51.40 Inflammatory polyps of colon without complications; I10 Essential (primary) hypertension; Z98.890 Other specified postprocedural states; Z80.0 Family history of malignant neoplasm of digestive organs; Z88.0 Allergy status to penicillin; Z79.899 Other long term (current) drug therapy; Z87.891 Personal history of nicotine dependence
CPT/HCPCS: 36415; 45380; 45385; 46221; 71045; 71046; 80048; 85025; 94640; A9270; G0378; J2250; J2704; J7120; 00812

== ENCOUNTER 2023-09-08 07:02 | Emergency (ER) | payer OTHER ==
[2023-09-08] MEDS ORDERED: Metoclopramide 10 MG/2 ML SDV IVPUSH ONE (07:31)
[2023-09-08] MEDS ORDERED: HYDROmorphone 1 MG/ML Syringe IVPUSH ONE (07:31)
[2023-09-08] MEDS ORDERED: diphenhydrAMINE 50 MG/ML SDV IVPUSH ONE (07:32)
[2023-09-08] MEDS ORDERED: Dextrose 5%-0.9% NaCl 1,000 ML IV SCH (07:45)
== END 2023-09-08 08:50 | disposition home or self-care (01) ==
LOC: JD.ED 07:02
DX: N20.2 Calculus of kidney with calculus of ureter (principal); I10 Essential (primary) hypertension; Z88.0 Allergy status to penicillin; Z79.899 Other long term (current) drug therapy
CPT/HCPCS: 74176; 96374; 96375; 99284; J1170; J1200; J2765; J7042

== ENCOUNTER 2023-11-20 12:38 | Emergency (ER) | payer OTHER | END 2023-11-20 16:02 | disposition home or self-care (01) | LOC: JD.ED 12:38 | DX: S93.601A Unspecified sprain of right foot, initial encounter (principal); I10 Essential (primary) hypertension; Z79.899 Other long term (current) drug therapy; Z88.0 Allergy status to penicillin; W20.8XXA Other cause of strike by thrown, projected or falling object, initial encounter | CPT/HCPCS: 73630-26-RT; 73630-RT; 99283 ==